=== PATIENT | female | born 2000 | race Two or more races ===

== ENCOUNTER 2024-05-12 19:48 | Inpatient (IN) | payer MEDICAID, SELFPAY ==
[2024-05-12] VITALS (15 sets, daily range): BP systolic 90–135; BP diastolic 54–73; PULSE 85–118; RESP 17; TEMP 37.4; O2SAT 92–100; BMI 32.1
--- NOTE | 2024-05-12 20:20 | XR_ITS ---
Examination: age Limited Technique: Limited transabdominal sonographic images pelvis Exam date and time: May 12, 20242 hrs. Indications: Amniotic fluid leaking beginning 1800 hrs. With pelvic contractions, labor evaluation Findings: presentation cephalic Impression: presentation cephalic
--- NOTE | 2024-05-12 20:44 | PD.LDHP ---
Documentation for date of: 05/12/24 OB Labor/Induct. HPI History of Present Illness : 3 Term pregnancies: 2 Living children: 2 History of Abortions: Spontaneous and Elective: 0 History of sections: No History of : No KENDY: 05/15/24 Gestational Age (weeks): 39 Gestational Age (days): 4 History of present illness: 24-year-old -0-0-2 at 39 weeks 4 days, KENDY 05/15/2024 presented to labor and delivery with gross rupture of membranes. Patient reports contractions, denies any vaginal bleeding and reports good movements. She receives care at [facility], she has no other complications in the chart records were reviewed and are significant for Blood group O+, rubella nonimmune status, RPR nonreactive, hep B and hep C negative, HIV negative, antibody screen is negative, GC chlamydia is negative. Group B strep is negative. Anatomy ultrasound done with maternal- medicine showed normal anatomy survey without any other problems. Left lateral placenta with no previa with normal uterus and adnexa. Review of Systems Review of Systems Systems Reviewed: All systems reviewed, normal except as documented Past Medical History Surgical History SURGICAL: Negative Section Meds Home Medications and Allergies Home Medications ?Medication ?Instructions ?Recorded ?Confirmed ?Type Vitamin * 1 tab PO QDAY #0 tabs 01/15/16 01/03/23 History ferrous sulfate 325 mg (65 mg 325 mg PO BID 01/03/23 01/03/23 History iron) tablet Allergies Allergy/AdvReac Type Severity Reaction Status Date / Time Penicillins Allergy Severe Rash Verified 01/03/23 05:33 OB Exam Physical Exam Vital signs: Pulse BP Pulse Ox 115 H 90/54 L 98 05/12/24 20:06 05/12/24 20:06 05/12/24 20:21 Constitutional Constitutional: no acute distress Routine HEENT Exam Head: Present normocephalic and atraumatic Eye: Present EOMI and PERRL ENT: Present mucous membranes moist Routine Neck Exam Neck: Present supple and trachea midline Routine Cardiovascular Exam Cardiovascular: Present RRR Routine Abdominal Exam Abdominal: Present soft and normoactive bowel sounds Detailed Labor and Delivery Exam Dilation (cm): 5 Effacement (%): 80 Cervix position: mid station: -1 Baseline heart rate: 140 monitor accelerations: 15x15 monitor decelerations: None Routine Extremities Exam Extremities: Present full ROM Routine Skin Exam Skin: Present intact, dry and warm Routine Neurological Exam Neurological: Present alert, oriented X3 and CN II-XII intact Routine Psychiatric Exam Psychiatric: Present normal affect and normal thought process OB Assessment & Plan Assessment and Plan (1) Spontaneous rupture of membranes: Status: Acute Assessment and plan: Admit to Inpatient to labor and Delivery GBS: neg Vital Signs per protocol External monitor/Tocometry Activity: Bedrest w/bathroom privileges Ambulate in Latent Labor with intact membrane Intake and Urine Output Monitoring Urine catheter as needed Diet: As tolerated in latent labor Ice Chips in active labor Intravenous Fluids: Lactated Ringers +/- 5% Dextrose at 125 cc/hour Labs Complete Blood Count Blood Type and Antibody Screen (Indirect Sobeida) RPR COVID-19 RNA Plan: Misoprostol for cervical ripening until favorable, proceed to oxytocin once ripening is achieved Estimated weight 8 pounds Anticipate vaginal delivery. Pain management as per protocol, epidural if desired. Patient will require MMR vaccination after due to rubella nonimmune status
[2024-05-12 20:48] LABS: Basophils % (Auto) 0 % (0-2.5); Eosinophils # (Auto) 0.1 Thou/mm3 (0.0-0.5); Eosinophils % (Auto) 0 % (0-10); Hematocrit 35.7 % (36.0-46.0); Hemoglobin 11.6 g/dL (12.0-16.0); Immature Granulocytes % (Auto) 1 % (0-0); Immature Granulocytes Auto 0.09 Thou/mm3 (0.00-0.00); Lymphocytes # (Auto) 3.5 Thou/mm3 (1.0-4.8); Lymphocytes % (Auto) 23 % (10-50); Mean Corpuscular HGB Conc 32.5 g/dl (31.0-37.0); Mean Corpuscular Hemoglobin 29.2 pg (25.0-35.0); Mean Corpuscular Volume 90 fL (80-100); Monocytes # (Auto) 0.9 Thou/mm3 (0.0-0.8); Monocytes % (Auto) 6 % (0-12); Neutrophils # (Auto) 10.5 Thou/mm3 (1.8-7.7); Neutrophils % (Auto) 70 % (37-80); Nucleated Red Blood Cell % 0 /100 WBC (0); Platelet Count 191 Thou/mm3 (140-440); RDW Standard Deviation 44.1 fL (36.4-46.3); Red Blood Count 3.97 Miln/mm3 (4.00-5.20); White Blood Count 15.1 Thou/mm3 (3.6-11.0)
[2024-05-12] MEDS: RINGERS LACTATED 1000 ML 1,000 ML 100 ML IV (20:50)
[2024-05-12 21:25] LABS: Syphilis Nonreactive (Nonreactive)
[2024-05-12] MEDS: fentaNYL CIT INJ 50 mCg/ML AMP 2ML 100 MCG IVP (21:45)
[2024-05-12] MEDS: OXYTOCIN INJ 10 UNIT/ML VIAL IM (22:43)
[2024-05-12] MEDS: OXYTOCIN in NS 20 units 20 UNIT/1,000 ML BAG 125 UNIT IV (22:43)
[2024-05-12] MEDS: MISOPROSTOL 200 mCg TABLET 800 MCG PR (22:51)
[2024-05-12] MEDS: LIDOCAINE HCL 1% 20 ML VIAL INFL (22:54)
[2024-05-12] MEDS: TRANEXAMIC ACID 1,000 MG IVPB 1,000 MG/100 ML BAG 200 MG IV (23:22)
--- NOTE | 2024-05-12 23:32 | PD.LDDELS ---
Data (Roy) Data Hx Section: No Para: 2 Delivery Data (Roy) Labor Data Stimulated/Augmented: No Induction: No ROM Date: 05/12/24 ROM Time: 18:00 Rupture Type: SROM Amniotic Fluid: Clear Delivery Data EDC: 05/16/24 EDC calculated by:: LMP/early US confirmation Labor Onset Stage 1 Date: 05/12/24 Labor Onset Stage 1 Time: 20:53 Labor Onset Stage 2 Date: 05/12/24 Labor Onset Stage 2 Time: 22:37 Delivery Date: 05/12/24 Delivery Time: 22:43 Gestational age (weeks): 39 Gestational age (days): 4 Placenta Delivery Date: 05/12/24 Placenta Delivery Time: 22:50 Delivered by: Geena Rivas Delivery nurse: Pascale Banks Other staff at delivery: Nurse Other staff at delivery: Angely Hooks Delivery Method Delivery: Vaginal Delivery Type: Spontaneous Presentation: Vertex Position: OA Anesthesia Type Primary Anesthesia: Local Delivery Room Medications Intrapartum Medications: Narcotics Post Delivery Medications: Tocolytics and Cytotec Placenta Placenta Delivery: Spontaneous (inspected, placenta intact, membranes intact) Episiotomy Episiotomy: None Lacerations #1: Perineal: 2nd degree (left labia repair) Perineal repair Sutures used for repair: 3.0 Vicryl EBL Estimated blood loss (ml): 400 Umbilical Cord Umbilical Vessels: 3 Nuchal Cord: None Body Cord: None Data (Roy) Data Infant Gender: Female Infant Weight Grams: 3700 1 Minute Total: 9 5 Minute Total: 9
[2024-05-13] VITALS (11 sets, daily range): BP systolic 110–130; BP diastolic 55–85; PULSE 78–114; RESP 14–18; TEMP 36.5–37.3; O2SAT 96–99
[2024-05-13] MEDS: TRANEXAMIC ACID 1,000 MG IVPB 1,000 MG/100 ML BAG 200 MG IV (00:25)
[2024-05-13] MEDS: IBUPROFEN TAB 400 MG TABLET 800 MG PO ×2 (00:40→14:45)
[2024-05-13 02:42] LABS: Amphetamine/Metham Scrn,Ur OB Negative (Negative); Benzoylecgonine Screen, Ur OB Negative (Negative); Opiate Screen,Urine OB Negative (Negative); THC Screen,Urine OB Negative (Negative)
[2024-05-13] MEDS: ACETAMINOPHEN 325 MG TABLET 650 MG PO (05:20)
[2024-05-13] MEDS: DOCUSATE SOD 100 MG CAPSULE PO ×2 (08:30→21:13)
[2024-05-13 08:44] LABS: Basophils % (Auto) 0 % (0-2.5); Eosinophils # (Auto) 0.1 Thou/mm3 (0.0-0.5); Eosinophils % (Auto) 0 % (0-10); Hematocrit 32.2 % (36.0-46.0); Hemoglobin 10.7 g/dL (12.0-16.0); Immature Granulocytes % (Auto) 1 % (0-0); Immature Granulocytes Auto 0.12 Thou/mm3 (0.00-0.00); Lymphocytes # (Auto) 3.1 Thou/mm3 (1.0-4.8); Lymphocytes % (Auto) 14 % (10-50); Mean Corpuscular HGB Conc 33.2 g/dl (31.0-37.0); Mean Corpuscular Hemoglobin 29.5 pg (25.0-35.0); Mean Corpuscular Volume 89 fL (80-100); Monocytes % (Auto) 5 % (0-12); Neutrophils % (Auto) 81 % (37-80); Nucleated Red Blood Cell % 0 /100 WBC (0); Platelet Count 184 Thou/mm3 (140-440); RDW Standard Deviation 42.6 fL (36.4-46.3); Red Blood Count 3.63 Miln/mm3 (4.00-5.20); White Blood Count 22.3 Thou/mm3 (3.6-11.0)
--- NOTE | 2024-05-13 12:46 | ESPR_ITS ---
Subjective Subjective Interval history: No complaints of pain. No dizziness. Bonding breast-feeding Exam Vital Signs Temp Pulse Resp BP Pulse Ox O2 Del Method 98.1 F 99 15 114/77 98 Room Air 05/13/24 12:00 05/13/24 12:00 05/13/24 12:00 05/13/24 12:00 05/13/24 12:00 05/13/24 12:00 Narrative Exam Vital signs stable afebrile. Breasts are soft. Fundus firm below the umbilicus. Perineum is healing incision well-approximated minimal swelling. Small lochia Objective Labs 05/13/24 07:54 Labs: Laboratory Results - last 24 hr 05/12/24 05/13/24 05/13/24 20:25 02:19 07:54 WBC 15.1 H 22.3 H D RBC 3.97 L 3.63 L Hgb 11.6 L 10.7 L Hct 35.7 L 32.2 L MCV 90 89 MCH 29.2 29.5 MCHC 32.5 33.2 RDW Std Deviation 44.1 42.6 Plt Count 191 184 Neut % (Auto) 70 81 H Lymph % (Auto) 23 14 [place] % (Auto) 6 5 Eos % (Auto) 0 0 Baso % (Auto) 0 0 Neut # (Auto) 10.5 H 18.0 H Lymph # (Auto) 3.5 3.1 [place] # (Auto) 0.9 H 1.0 H Eos # (Auto) 0.1 0.1 Baso # (Auto) 0.0 0.0 Immature Gran # (Auto) 0.09 H 0.12 H Absolute Nucleated RBC 0.00 0.00 Immature Gran % 1 H 1 H Nucleated RBC % 0 0 Urine Opiates Screen Negative U Amphetamin/Meth Scrn Negative U Cocaine Metab Screen Negative U Marijuana (THC) Screen Negative Syphilis Serology Nonreactive Blood Type O Positive Antibody Screen NEGATIVE Blood Bank Wristband ID Yes Assessment & Plan Problem List (1) Spontaneous rupture of membranes: Status: Acute Assessment Comment Assessment comment: 24 hr pp Plan Comment Plan Comment: Continue to encourage bonding. Encourage ambulation. Encourage fluids. Discussed discharge instructions and will discharge patient tomorrow Time Spent With Patient Time: Total time spent is greater than 50% in coordination of care (as documented) at patient's floor/unit and/or counseling patient:
--- NOTE | 2024-05-13 16:01 | PC.CC ---
SS referral for pt Marti Cox, 24 yr old female late to care at 17 weeks. From report from JAVIER Leigh, there are no other concerns at this time. INSURANCE COUNSELOR CC met with pt at bedside. At time of encounter FOB Delmar Bueno [phone] is at bedside, pt expressed verbal consent for INSURANCE COUNSELOR CC to continue with encounter. INSURANCE COUNSELOR CC introduced self and role in pt care. INSURANCE COUNSELOR CC explained reason for encounter and limitations of confidentiality. At this time pt is agreeable to meet with INSURANCE COUNSELOR CC. Pt is noted to be alert and oriented to person, place and and situation. FOB noted to be bonding with female infant at time of encounter. Pt speaks in clear even tone, kept direct eye contact. Pt confirmed being late to care at 17 weeks, stating she has regular menstrual and did not know she was . Per pt once she engaged in care she remained consistent. Per pt this is her 3rd delivery. Pt reports she has an 8 and 1 yr old in care of family at this time. FOB is part of family dynamic and will be providing transport at time of D/c. Pt reports having all needs for infants D/c. Family will D/c to family residence at [facility] [address] Pt reports having family support. Pt is connected with [employer], [facility] and [employer]. Pt reports she is currently not employed. Pt denies hx of substance use. Pt denies any past or present involvement with CWS. Pt denies any issues with DV. PEr pt she has never experienced depression. INSURANCE COUNSELOR CC was able to provide some education on signs and symptoms. Pt denies any hx of MH concerns. At this time pt declined any further resources.
[2024-05-14 00:03] VITALS: BP 115/67; PULSE 78; RESP 18; TEMP 36.9; O2SAT 98
[2024-05-14 03:39] VITALS: BP 112/71; PULSE 69; RESP 13; TEMP 36.5; O2SAT 98
--- NOTE | 2024-05-14 07:55 | ESPR_ITS ---
Subjective Subjective Interval history: No complaints of pain. No dizziness. Bonding Exam Vital Signs Temp Pulse Resp BP Pulse Ox O2 Del Method 97.7 F 69 13 112/71 98 Room Air 05/14/24 03:39 05/14/24 03:39 05/14/24 03:39 05/14/24 03:39 05/14/24 03:39 05/14/24 03:39 Narrative Exam Vital signs stable afebrile. Breasts are soft. Fundus firm below the umbilicus. Perineum intact no swelling. Small lochia. Uterus well involuted. Negative Homans' sign. No swelling. Laceration healing Objective Labs 05/13/24 07:54 Labs: Laboratory Results - last 24 hr 05/13/24 07:54 WBC 22.3 H D RBC 3.63 L Hgb 10.7 L Hct 32.2 L MCV 89 MCH 29.5 MCHC 33.2 RDW Std Deviation 42.6 Plt Count 184 Neut % (Auto) 81 H Lymph % (Auto) 14 Sebastian % (Auto) 5 Eos % (Auto) 0 Baso % (Auto) 0 Neut # (Auto) 18.0 H Lymph # (Auto) 3.1 Sebastian # (Auto) 1.0 H Eos # (Auto) 0.1 Baso # (Auto) 0.0 Immature Gran # (Auto) 0.12 H Absolute Nucleated RBC 0.00 Immature Gran % 1 H Nucleated RBC % 0 Assessment & Plan Problem List (1) Spontaneous rupture of membranes: Status: Acute Assessment Comment Assessment comment: 48 hr pp Plan Comment Plan Comment: Discharge home with baby. Discussed comfort measures for perineal laceration. Continue vitamins and iron. Tylenol or ibuprofen for pain. Discussed danger signs and symptoms. Discussed ER precautions and parameters. And discussed signs and symptoms of infection. Increase fluids and return in 3 weeks visit Time Spent With Patient Time: Total time spent is greater than 50% in coordination of care (as documented) at patient's floor/unit and/or counseling patient:
--- NOTE | 2024-05-14 07:57 | ESDS_ITS ---
DS: Providers Provider Date of admission: 05/12/24 19:48 Primary care physician: Sebastián Hopkins MD Admitting Provider: Tapan Ramsey MD Attending Provider on Admission: Tapan Ramsey MD Consults: 05/13/24 04:19 Referral Routine Comment: Attending Provider on DC: Geena Rivas CNM Discharging Provider: Geena Rivas CNM DS: Diagnosis Problem List Completed Was Problem List Reviewed/Reconciled?: Yes Summary/Hosp Course Brief History: 24-year-old -0-0-2 at 39 weeks 4 days, KENDY 05/15/2024 presented to labor and delivery with gross rupture of membranes. Patient reports contractions, denies any vaginal bleeding and reports good movements. She receives care at [facility], she has no other complications in the chart records were reviewed and are significant for Blood group O+, rubella nonimmune status, RPR nonreactive, hep B and hep C negative, HIV negative, antibody screen is negative, GC chlamydia is negative. Group B strep is negative. Anatomy ultrasound done with maternal- medicine showed normal anatomy survey without any other problems. Left lateral placenta with no previa with normal uterus and adnexa. Peripartum Data Delivery Method: Normal Vaginal Delivery Episiotomy Description: None Laceration Description: yes (1st perineal) Time Spent with Patient Time attestation: Total time spent providing and/or coordinating discharge services: Exam Vital Signs Temp Pulse Resp BP Pulse Ox O2 Del Method 97.7 F 69 13 112/71 98 Room Air 05/14/24 03:39 05/14/24 03:39 05/14/24 03:39 05/14/24 03:39 05/14/24 03:39 05/14/24 03:39 Discharge Plan Plan Patient Disposition: HOME (Self Care) Prescriptions/Referrals Prescriptions/Med Rec: No Action Vitamin Tablet 1 tab PO QDAY ferrous sulfate [Iron (ferrous sulfate)] 325 mg (65 mg iron) Tablet 1 mg PO QDAY Referrals: Sebastián Hopkins MD [Primary Care Provider] - Patient/Caregiver Discharge Instructions Print Language: Vietnamese Activity Restrictions/Additional Instructions: Discharge home with baby. Continue vitamins and iron. Tylenol ibuprofen for pain. Discussed danger signs and symptoms and ER precautions. Discussed parameters for ER precautions. Discussed signs and symptoms of infection. Discussed comfort measures and care for laceration. Increase fluids and rest. Return in 2 to 3 weeks with Stand Alone Forms: [employer] Award Info., Patient Portal Info Letter, Work/Release Restrictions Discharge Order Discharge Orders: Discharge (Routine); Ordered 05/14/24 Ordered By: Geena Rivas Planned Discharge Date 05/14/24
[2024-05-14] MEDS: DOCUSATE SOD 100 MG CAPSULE PO (08:16)
[2024-05-14 08:20] VITALS: BP 114/71; PULSE 83; RESP 17; TEMP 36.9; O2SAT 99
== END 2024-05-14 14:05 | disposition home or self-care (01) | DRG 560 ==
LOC: S4SX 20:01 → S4NX 05-14 07:58 → S4SX 05-14 08:20 → S4NX 05-14 08:20
PROVIDERS: Advanced Practice Midwife; Admitting Provider Obstetrics & Gynecology; PCP Family Medicine; Visit Provider Obstetrics & Gynecology
DX: O42.02 Full-term premature rupture of membranes, onset of labor within 24 hours of rupture (principal); Z37.0 Single live birth; Z3A.39 39 weeks gestation of pregnancy; O70.1 Second degree perineal laceration during delivery
CPT/HCPCS: 36415; 59025; 59409; 76815; 80307; 85025; 86780; 86850; 86900; 86901; J2590; J3010; J3490; J7120; S0191; A9270